=== PATIENT | male | born 1935 | race Caucasian/White ===

== ENCOUNTER 2016-11-23 12:22 | Day surgery (SDC) | payer OTHER ==
[2016-11-23] MEDS ORDERED: LR 1,000 ML ONE (12:52)
[2016-11-23] MEDS ORDERED: MEFOXIN 1 GM/D5W 50 ML IV ONE (13:30)
[2016-11-23] MEDS ORDERED: XYLOCAINE 1%/EPI 1:100,000 ONE (13:35)
[2016-11-23] MEDS ORDERED: DIPRIVAN 1% ONE (13:58)
[2016-11-23] MEDS ORDERED: DECADRON ONE (14:15)
[2016-11-23] MEDS ORDERED: ZOFRAN ONE (14:15)
--- NOTE | 2016-11-23 14:48 | OPERATIVE NOTE ---
PROCEDURE DATE: 11/23/2016 PROCEDURES PERFORMED: 1. Esophagogastroduodenoscopy. 2. Percutaneous endoscopic gastrostomy tube placement. PROVIDER: Arvin Ahuja MD PREOPERATIVE DIAGNOSIS: Oropharyngeal dysphagia. POSTOPERATIVE DIAGNOSES: 1. Mild gastritis, otherwise normal esophagogastroduodenoscopy. 2. PEG-24 placed. HISTORY: This is an 81-year-old gentleman, admitted to the long-term [facility] in [place] with diskitis and has not been able to eat well because of his oropharyngeal dysphagia. Endoscopy was done for PEG tube placement for nutritional support. DESCRIPTION OF PROCEDURE: Informed consent was obtained from the patient as well as his daughter who is present at the bedside. The risks of but not limited to bleeding, perforation, aspiration, pneumonia, and infection were explained. They understood and agreed to proceed. The patient was brought to the endoscopy unit and was premedicated as per Anesthesia. After adequate sedation, while he was lying in supine position, the gastroscope was introduced into the posterior pharynx and advanced under direct vision into the esophagus. The esophagus, in its entire length, appeared to be normal. No esophagitis, webs, rings, or varices were seen. The scope was then passed through the esophagus into the stomach. The stomach was examined both in straight and retroflexed view, which revealed normal cardia, fundus, and body. Mild linear hyperemia was noted in the antrum, suggestive of mild gastritis but no ulcer, AVM, or masses were seen. The scope was then passed through the normal pylorus into the duodenal bulb and then the 2nd part of the duodenum. Both appeared to be normal. The scope was then withdrawn back into the stomach. The stomach was insufflated and a maximum indentation and transillumination was noted and marked onto the anterior abdominal wall. After that, the area was cleansed, sterilized, and draped using universal precautions. The spot was anesthetized using lidocaine with epinephrine. Once adequately anesthetized, a centimeter long incision was made onto the anterior abdominal wall. The stomach was then accessed through the anterior abdominal wall using a needle with a trocar. The needle was removed, leaving the trocar in place. A nylon guidewire was then passed through the trocar into the stomach, where the distal end of the wire was grasped. It was removed with the scope without any problem. The PEG-24 was then attached onto the distal end of the guidewire and it was deployed into the stomach by pull-through method without any difficulty. The scope was then reintroduced back into the stomach. A dressing was applied and the scope was reintroduced back into the stomach, where the internal bumper was noted to be in an adequate position. The scope was then removed. The patient tolerated the procedure well. No complications were noted. The patient was then transferred to the recovery area in stable condition. IMPRESSION: Mild gastritis, otherwise normal esophagogastroduodenoscopy. PEG-24 was placed without any difficulty. RECOMMENDATIONS: We will start his tube feedings in about 4 hours and continue antibiotics. I have recommended PEG site care. Follow up with me in the office as needed.
[2016-11-23 15:33] VITALS: BP 158/90
== END 2016-11-23 15:15 | disposition short-term general hospital (02) ==
LOC: ENDO 12:22
PROVIDERS: ATTEND Internal Medicine Gastroenterology
DX: R13.12 Dysphagia, oropharyngeal phase (principal); K29.70 Gastritis, unspecified, without bleeding; I10 Essential (primary) hypertension; E11.9 Type 2 diabetes mellitus without complications; E78.5 Hyperlipidemia, unspecified; M19.90 Unspecified osteoarthritis, unspecified site; Z95.0 Presence of cardiac pacemaker
CPT/HCPCS: 82948; J0694; J1100; J2405; J7120